=== PATIENT | female | born 1995 | race Caucasian/White ===

== ENCOUNTER 2017-01-09 14:03 | Emergency (ER) | payer BC, OTHER ==
[~2017-01-09] VITALS: Ht 170.2 cm; Wt 62.8 kg
[2017-01-09 14:30] VITALS: Ht 170.2 cm; Wt 62.8 kg
[2017-01-09] MEDS ORDERED: KETOROLAC TROMETHAMINE 30 MG/ML VIAL IV STA (16:00)
[2017-01-09] MEDS ORDERED: ONDANSETRON INJ 2 MG/ML 2 ML VIAL IV STA (16:00)
[2017-01-09] MEDS ORDERED: SODIUM CHLORIDE 0.9% 1000ML 2,000 ML IV STA (16:00)
--- NOTE | 2017-01-09 16:19 | EMERGENCY ROOM VISIT NOTE ---
History First contact with patient: 15:51 Chief Complaint: ILLNESS Stated Complaint: SORETHROAT W/ SWELLING,VOMITING,DIARRHEA History of Present Illness The patient is a 21 year old female who presents to the Emergency Room with complaints of sore throat, fevers and chills, and generalized malaise for the past 5 days. The sore throat has been constant, aching and feels raw, hoarse voice, pain with swallowing, and 7/10. She states she has also had some nausea, vomiting, and diarrhea associated with this, and states she has not been able to keep anything down since yesterday. She also notes that she has only urinated once today. She was seen at urgent care yesterday, states that the rapid strep test was negative and also sent a test for mono but she does not know what the result of that was. She states she has been feeling worse today, and has not been able to urinate for several hours because she feels very dehydrated. She states that every time she tries to drink something, she vomits it back up. She denies any recent contacts, recent travel, she is up to date on immunizations. She denies any headache, neck pain, vision changes, shortness of breath, chest pain, abdominal pain, back pain, blood in the stool, blood in the urine, or rash. Review of Systems A complete 10 point review of systems was reviewed with the patient with pertinent positives and negatives as per history of present illness. All else were negative. Past Medical/Surgical History Medical Problems: (1) No Known Active Medical Problems Social History Smoking Status: Never Smoker Housing Status: lives with family Occupation Status: student Current/Historical Medications Scheduled Amoxicillin (Amoxil), 500 MG PO TID Ondasetron Odt (Zofran Odt), 4 MG SL Q6H Physical Exam Vital Signs Date Time Temp Pulse Resp B/P (MAP) Pulse Ox O2 Delivery O2 Flow Rate FiO2 01/09/17 21:02 37.1 80 18 106/59 98 Room Air 01/09/17 20:04 36.7 84 17 98/46 98 Room Air 01/09/17 18:24 99 18 104/57 97 Room Air 01/09/17 17:50 38.2 99 18 97/47 96 Room Air 01/09/17 16:38 99 Room Air 01/09/17 15:51 39.6 124 18 105/61 100 Room Air 01/09/17 14:30 39.3 133 18 98/59 97 Room Air Physical Exam CONSTITUTIONAL: No acute distress, but appears uncomfortable. Dehydrated. Alert and oriented X 4 with normal affect. HEENT: Normocephalic, atraumatic. Pupils equal, round and reactive to light, EOMI. TMs normal. Pharynx is erythematous, injected, with several exudates noted. There is no trismus or uvular deviation. Dry mucous membranes. NECK: Supple, full active range of motion without discomfort. Bilateral anterior cervical adenopathy, swollen and tender to palpation. RESPIRATORY: Clear to auscultation bilaterally with no wheezing, crackles, rhonchi or stridor. Equal expansion bilaterally. CARDIOVASCULAR: Regular rate and rhythm with no murmurs, rubs or gallops. Normal peripheral perfusion. No edema. GASTROINTESTINAL: Mild epigastric tenderness to palpation. The abdomen is otherwise soft, nontender, nondistended. Bowel sounds present in all quadrants. MUSCULOSKELETAL: Full range of motion of all joints without discomfort. INTEGUMENTARY: No rash or other significant dermatologic conditions noted. NEUROLOGIC: Cranial nerves II-XII grossly intact. No focal neurologic deficits noted. Medical Decision & Procedures ER Provider Diagnostic Interpretation: CHEST 2 VIEWS ROUTINE CLINICAL HISTORY: fever, illness, eval PNA dyspnea COMPARISON STUDY: No previous studies for comparison. FINDINGS: The bones soft tissues and hemidiaphragms are normal. The cardiomediastinal silhouette is normal. The lungs are clear. The pulmonary vasculature is normal. IMPRESSION: Negative chest. Laboratory Results 01/09/17 16:28 Red Blood Count 4.63, Mean Corpuscular Volume 85.1, Mean Corpuscular Hemoglobin 29.4, Mean Corpuscular Hemoglobin Concent 34.5, Mean Platelet Volume 9.9, Neutrophils (%) (Auto) 83.1, Lymphocytes (%) (Auto) 5.1, Monocytes (%) (Auto) 11.1, Eosinophils (%) (Auto) 0.0, Basophils (%) (Auto) 0.2, Neutrophils # (Auto ) 16.23, Lymphocytes # (Auto) 0.99, Monocytes # (Auto) 2.17, Eosinophils # (Auto ) 0.00, Basophils # (Auto) 0.03 01/09/17 16:28 Test 01/09/17 16:19 01/09/17 16:28 01/09/17 16:38 01/09/17 17:20 Bedside Urine Test NEG (NEG) White Blood Count 19.51 K/uL (4.8-10.8) Red Blood Count 4.63 M/uL (4.2-5.4) Hemoglobin 13.6 g/dL (12.0-16.0) Hematocrit 39.4 % (37-47) Mean Corpuscular Volume 85.1 fL (80-100) Mean Corpuscular Hemoglobin 29.4 pg (25-34) Mean Corpuscular Hemoglobin Concent 34.5 g/dl (32-36) Platelet Count 301 K/uL (130-400) Mean Platelet Volume 9.9 fL (7.4-10.4) Neutrophils (%) (Auto) 83.1 % Lymphocytes (%) (Auto) 5.1 % Monocytes (%) (Auto) 11.1 % Eosinophils (%) (Auto) 0.0 % Basophils (%) (Auto) 0.2 % Neutrophils # (Auto) 16.23 K/uL (1.4-6.5) Lymphocytes # (Auto) 0.99 K/uL (1.2-3.4) Monocytes # (Auto) 2.17 K/uL (0.11-0.59) Eosinophils # (Auto) 0.00 K/uL (0-0.5) Basophils # (Auto) 0.03 K/uL (0-0.2) RDW Standard Deviation 41.0 fL (36.4-46.3) RDW Coefficient of Variation 13.1 % (11.5-14.5) Immature Granulocyte % (Auto) 0.5 % Immature Granulocyte # (Auto) 0.09 K/uL (0.00-0.02) Anion Gap 11.0 mmol/L (3-11) Est Creatinine Clear Calc Drug Dose 94.6 ml/min Estimated GFR () 103.3 Estimated GFR (Non- 89.1 BUN/Creatinine Ratio 9.9 (10-20) Calcium Level 9.2 mg/dl (8.5-10.1) Total Bilirubin 0.4 mg/dl (0.2-1) Direct Bilirubin 0.2 mg/dl (0-0.2) Aspartate Amino Transf (AST/SGOT) 13 U/L (15-37) Alanine Aminotransferase (ALT/SGPT) 12 U/L (12-78) Alkaline Phosphatase 111 U/L (45-117) Total Protein 8.7 gm/dl (6.4-8.2) Albumin 3.6 gm/dl (3.4-5.0) Lipase 65 U/L (73-393) Monoscreen NEG (NEG) Bedside Lactic Acid Venous 0.73 mmol/L (0.90-1.70) Urine Color DK YELLOW Urine Appearance CLEAR (CLEAR) Urine pH 6.0 (4.5-7.5) Urine Specific [place] 1.029 (1.000-1.030) Urine Protein 1+ (NEG) Urine Glucose (UA) NEG (NEG) Urine Ketones 4+ (NEG) Urine Occult Blood NEG (NEG) Urine Nitrite NEG (NEG) Urine Bilirubin 1+ (NEG) Urine Urobilinogen NEG (NEG) Urine Leukocyte Esterase TRACE (NEG) Urine WBC (Auto) 1-5 /hpf (0-5) Urine RBC (Auto) 5-10 /hpf (0-4) Urine Hyaline Casts (Auto) 10-30 /lpf (0-5) Urine Epithelial Cells (Auto) >30 /lpf (0-5) Urine Bacteria (Auto) NEG (NEG) Urine Renal Epithelial Cells /lpf (0-5) Medications Administered Medications (Trade) Dose Ordered Sig/Fannie Route Start Time Stop Time Status Last Admin Dose Admin Sodium Chloride 2,000 ml @ 999 mls/hr Q2H1M STAT IV 01/09/17 16:00 01/09/17 18:00 DC 01/09/17 16:00 999 MLS/HR Ketorolac Tromethamine (Toradol Inj) 15 mg NOW STAT IV 01/09/17 16:00 01/09/17 16:03 DC 01/09/17 16:43 15 MG Ondansetron HCl (Zofran Inj) 4 mg NOW STAT IV 01/09/17 16:00 01/09/17 16:04 DC 01/09/17 16:43 4 MG Ampicillin Sodium/ Sulbactam Sodium 3000 mg/Sodium Chloride 108 ml @ 200 mls/hr NOW STAT IV 01/09/17 18:49 01/09/17 19:21 DC 9/10/17 19:01 200 MLS/HR Sodium Chloride 1,000 ml @ 999 mls/hr Q1H1M STAT IV 01/09/17 19:50 01/09/17 20:50 DC 01/09/17 19:50 999 MLS/HR Acetaminophen (Tylenol Tab) 1,000 mg NOW STAT PO 01/09/17 19:50 01/09/17 19:51 DC 01/09/17 20:04 1,000 MG Ondansetron HCl (ZOFRAN ODT 4MG Home Pack) 1 homepack UD ONCE PO 01/09/17 21:45 01/09/17 21:46 DC 01/09/17 22:00 1 HOMEPACK Medical Decision CC: Patient presenting with complaint of sore throat, fevers, malaise Interpretation of Labs: Significant leukocytosis with left shift, no anemia, no significant electrolyte abnormalities, normal renal function, normal liver enzymes and lipase, normal lactic acid. UA shows 4+ ketones, no UTI. Urine negative Differential Diagnosis: Includes, but not limited to viral pharyngitis, streptococcal pharyngitis, mononucleosis, peritonsillar abscess, viral upper respiratory infection, bronchitis, pneumonia, UTI, dehydration, electrolyte abnormality, bacteremia, among others. Medication Reconciliation: I attest that I have personally reviewed the patient' s current medication list. Vital signs review: I reviewed the patient's vital signs and interpret them as follows: T: Afebrile; BP: Normotensive; HR: Tachycardic; RR: Within normal limits; Pulse Ox: Within normal limits on room air. Summary: Patient was evaluated at bedside, history of physical exam performed. Patient is alert and in no acute distress, but does appear very uncomfortable. She is noted to be quite febrile and tachycardic on initial exam. Patient appears very dehydrated on exam with dry mucous membranes, sunken eyes, dry skin. On exam, patient appears to have an exudative pharyngitis, with bilateral anterior cervical adenopathy. No trismus, unilateral swelling, uvular deviation, or muffled voice to suspect peritonsillar abscess at this time. Orders were placed at bedside for labs, UA and culture, urine , blood cultures, rapid strep and mono test, chest x-ray. Patient discussed with Dr. Low, who agrees with my assessment and plan. Labs reviewed as above, notable for significant leukocytosis with left shift concerning for possible bacterial infection. Rapid strep is negative, mono is negative. Patient appears severely dehydrated with 4+ ketones in her urine. Given patient's persistent high fevers for 5 days, significant leukocytosis, and concerning symptoms for bacterial pharyngitis, although mononucleosis cannot be fully ruled out. I discussed with the patient, she prefers to be placed on antibiotics. I did discuss risks and benefits of antibiotics as well as concern for possible antibiotic resistance, she verbalizes understanding and continued to request antibiotics. IV Unasyn dose given in the ED, Rx for amoxicillin provided to the patient. Rx for Zofran also provided. Patient received 3 L of normal saline for IV hydration, IV Toradol and PO Tylenol for fevers, with overall good improvement. Repeat vitals show resolution of tachycardia and she is now afebrile. Patient reassessed multiple times throughout ED stay, patient states she is feeling much better after interventions. She has been able to tolerate PO fluids without vomiting or increased nausea. I discussed all results with the patient and plan for discharge home. I instructed her to follow closely with her PCP/[facility], and gave her strict return precautions should her symptoms worsen. Patient verbalized understanding of all instructions and plan. Patient was discharged home in stable condition and ambulatory. Medication Reconcilliation Current Medication List: was personally reviewed by me Blood Pressure Screening Patient's blood pressure: Normal blood pressure Impression Primary Impression: Dehydration, severe Additional Impression: Pharyngitis Departure Information Dispostion Home / Self-Care Condition GOOD Prescriptions Ondasetron Odt (ZOFRAN ODT) 4 Mg Tab 4 MG SL Q6H for Nausea, #6 TAB Prov: Mariya Hansen CRNP 01/09/17 Amoxicillin (AMOXIL) 500 Mg Cap 500 MG PO TID for 10 Days, #30 CAP Prov: Mariya Hansen CRNP 01/09/17 Referrals No Doctor, Assigned (PCP) Patient Instructions ED Strep Pharyngitis Lizeth Carcamo [facility] Additional Instructions Your rapid strep screen was read as negative, however strep infection is suspected based on your exam today. Culture results should come back in the next 2 days. Take prescription medications as prescribed. Amoxicillin 500 mg 3 times a day x10 days. All antibiotics have the potential to cause diarrhea. A few develop a rash while on this medication stop the medication and see your family physician for evaluation. Zofran ODT 1 tablet every 6-8 hours as needed for severe nausea/vomiting. Ibuprofen(Motrin, Advil) may be used for fever or pain. Use 600mg every 6-8 hours as needed. Take with food. Avoid using more than 2400mg in a 24 hour period. Do not use 2400mg per day for more than three consecutive days without physician direction. Prolonged inappropriate use can lead to stomach upset or ulcers. (AND/OR) Acetaminophen(Tylenol) may be used for fever or pain. Use 1000mg every 8 hours as needed. Avoid using more than 3000 mg in a 24 hour period. You may alternate between Tylenol and ibuprofen every 4 hours to help manage your throat pain. Use warm salt water gargles. And drink warm tea to help soothe your throat. Please follow-up with your primary care provider in the next few days for reassessment. Return to emergency department if symptoms of difficulty breathing, increased pain or difficulty swallowing, persistent high fevers, or if your symptoms do not improve. Work Instructions Return To Work: 2 days Problem Qualifiers Additional Impression: Pharyngitis Pharyngitis/tonsillitis etiology: unspecified etiology Qualified Codes: J02.9 - Acute pharyngitis, unspecified
[2017-01-09 16:53] LABS: BASO % 0.2 %; BASO ABS # 0.03 K/uL (0-0.2); COMPLETE YES; HEMATOCRIT 39.4 % (37-47); IG% 0.5 %; LYMPH % 5.1 %; LYMPH ABS # 0.99 K/uL (1.2-3.4); MEAN CELL VOLUME 85.1 fL (80-100); MEAN CORPUSCULAR HEMOGLOBIN 29.4 pg (25-34); MEAN CORPUSCULAR HGB CONC 34.5 g/dl (32-36); MEAN PLATELET VOLUME 9.9 fL (7.4-10.4); MONO % 11.1 %; NEUT % 83.1 %; PLATELET COUNT 301 K/uL (130-400); RED BLOOD COUNT 4.63 M/uL (4.2-5.4); WHITE BLOOD COUNT 19.51 K/uL (4.8-10.8)
[2017-01-09 17:12] LABS: BUN/CREATININE RATIO 9.9 (10-20); CALCIUM 9.2 mg/dl (8.5-10.1); CREATININE 0.93 mg/dl (0.60-1.20); POTASSIUM 3.3 mmol/L (3.5-5.1)
[2017-01-09 17:36] LABS: URINE APPEARANCE CLEAR (CLEAR); URINE COLOR DK YELLOW; URINE EPITHELIAL CELL AUTO >30 /lpf (0-5); URINE NITRITE NEG (NEG); URINE SPECIFIC GRAVITY 1.029 (1.000-1.030); UROBILINOGEN NEG (NEG); ZZUR CULT IF INDIC CLEAN CATCH NO
[2017-01-09 17:44] LABS: MANUAL MICROSCOPIC REQUIRED? NO; REVIEW REQ? YES; URINE BILIRUBIN 1+ (NEG)
--- NOTE | 2017-01-09 18:16 | DIAGNOSTIC IMAGING REPORT ---
CHEST 2 VIEWS ROUTINE CLINICAL HISTORY: fever, illness, eval PNA dyspnea COMPARISON STUDY: No previous studies for comparison. FINDINGS: The bones soft tissues and hemidiaphragms are normal. The cardiomediastinal silhouette is normal. The lungs are clear. The pulmonary vasculature is normal. IMPRESSION: Negative chest. The above report was generated using voice recognition software. It may contain grammatical, syntax or spelling errors. Electronically signed by: Eddie Narvaez M.D. 01/09/2017 6:15 PM Dictated Date/Time: 01/09/2017 6:15 PM
[2017-01-09] MEDS ORDERED: AMPICILLIN/SULBACTAM SOD INJ 3,000 MG in SODIUM CHLORIDE 0.9% 100ML 100 ML IV STA (18:49)
[2017-01-09] MEDS ORDERED: SODIUM CHLORIDE 0.9% 1000ML 1,000 ML IV STA (19:50)
[2017-01-09] MEDS ORDERED: ACETAMINOPHEN 500 MG TAB PO STA (19:50)
[2017-01-09 21:02] VITALS: BP 106/59; PULSE 80; TEMP 37.1; O2SAT 98
[2017-01-09] MEDS ORDERED: AMOX500C3 PO (21:29)
[2017-01-09] MEDS ORDERED: ONDA4TAB10 SL (21:29)
[2017-01-09] MEDS ORDERED: ONDANSETRON HOME PACK 4MG OD TAB PO ONE (21:45)
== END 2017-01-09 22:00 | disposition home or self-care (01) ==
LOC: C.EDB 14:05
DX: E86.0 Dehydration (principal); J02.9 Acute pharyngitis, unspecified

== ENCOUNTER → 2017-01-18 | Outpatient (CLI) | payer BC, OTHER ==
[~2017-01-18] MED LIST: AMOX500C3 PO; ONDA4TAB10 SL
--- NOTE | 2017-01-18 17:24 | DIAGNOSTIC IMAGING REPORT ---
CHEST 2 VIEWS ROUTINE CLINICAL HISTORY: CXR preoperative evaluation COMPARISON STUDY: 01/09/2017 FINDINGS: The bones soft tissues and hemidiaphragms are normal. The cardiomediastinal silhouette is normal. The lungs are clear. The pulmonary vasculature is normal. IMPRESSION: Negative chest. The above report was generated using voice recognition software. It may contain grammatical, syntax or spelling errors. Electronically signed by: Eddie Narvaez M.D. 01/18/2017 5:22 PM Dictated Date/Time: 01/18/2017 5:22 PM
[2017-01-18 17:47] LABS: BASO % 0.3 %; BASO ABS # 0.04 K/uL (0-0.2); COMPLETE YES; EOS % 2.8 %; HEMATOCRIT 39.5 % (37-47); IG% 1.5 %; LYMPH % 22.9 %; LYMPH ABS # 2.81 K/uL (1.2-3.4); MEAN CELL VOLUME 86.4 fL (80-100); MEAN CORPUSCULAR HEMOGLOBIN 29.3 pg (25-34); MEAN CORPUSCULAR HGB CONC 33.9 g/dl (32-36); MEAN PLATELET VOLUME 8.9 fL (7.4-10.4); NEUT % 61.5 %; PLATELET COUNT 511 K/uL (130-400); RED BLOOD COUNT 4.57 M/uL (4.2-5.4); WHITE BLOOD COUNT 12.27 K/uL (4.8-10.8)
[2017-01-18 18:02] LABS: POTASSIUM 4.3 mmol/L (3.5-5.1)
[2017-01-18 18:08] LABS: PROTHROMBIN TIME (PATIENT) 10.5 SECONDS (9.0-12.0)
[2017-01-18 18:18] LABS: PREG INTERNAL NEGATIVE QC NEG CLEAR BACKGROUND; PREG INTERNAL POSITIVE QC POS CONTROL LINE
== END | disposition home or self-care (01) ==
LOC: C.RAD 16:33
DX: Z01.818 Encounter for other preprocedural examination (principal)

== ENCOUNTER → 2017-01-28 | Day surgery (SDC) | payer BC, OTHER ==
[2017-01-18 14:08] VITALS: Ht 170.2 cm; Wt 65.9 kg
[~2017-01-28] VITALS: Ht 170.2 cm; Wt 65.9 kg
[~2017-01-28] MED LIST changes: -AMOX500C3 PO; +ATROPINE SULFATE 0.1 MG/ML 5ML SYR IV PRN; +BACITRACIN/POLYMYXIN B OINT 15 GM TUBE EXT ONE; +DEXAMETHASONE SOD INJ 4 MG/ML VIAL ONE; +EpHEDrine SULFATE INJ 50 MG/ML AMP IV PRN; +FENTANYL CITRATE INJ 50 MCG/1 ML 2 ML VIAL IV PRN; +FENTANYL CITRATE INJ 50 MCG/1 ML 2 ML VIAL ONE; +FLUMAZENIL 0.1 MG/1 ML 10 ML VIAL IV PRN; +LACTATED RINGER'S 1000ML 1,000 ML IV SCH; +LIDOCAINE 2% JELLY 5 ML TUBE EXT ONE; +LIDOCAINE HCL 2% 2 ML VIAL (20MG/ML) ONE; +MIDAZOLAM HCL 1 MG/ML 2ML VIAL ONE; +NALOXONE HCL 0.4 MG/1 ML VIAL/CARP IV PRN; -ONDA4TAB10 SL; +ONDANSETRON INJ 2 MG/ML 2 ML VIAL IV PRN; +ONDANSETRON INJ 2 MG/ML 2 ML VIAL ONE; +OXYCODONE HCL SOLN 5 MG/5 ML UDC PO PRN; +OXYMETAZOLINE HCL 0.05% NA SPR 15 ML BTL ONE; +PROMETHAZINE HCL INJ 12.5 MG in SODIUM CHLORIDE 0.9% 50ML 50 ML IV PRN; +PROPOFOL IV EMULSION 10 MG/ML 20 ML VIAL IV ONE
--- NOTE | 2017-01-28 08:01 | History & Physical Bridge - [place] ---
H&P Re-Evaluation Bridge Note: I have examined the patient, reviewed the History & Physical and in the interval since the performance of the History & Physical I have noted the following changes of clinical significance: No changes noted
--- NOTE | 2017-01-28 08:47 | [facility] Operative Report ---
Operative Report Operative Date Jan 28, 2017. Pre-Operative Diagnosis Recurrent Acute Tonsillitis, Chronic Tonsillitis Post-Operative Diagnosis same Procedure(s) Performed Tonsillectomy Surgeon Dr. Ana Yao Fisher Trap Surgeon(s) 0 Estimated Blood Loss 0 Findings 2-3+ CRYPTIC TONSILS Specimens A. Right Tonsil B. Left Tonsil I attest to the content of the Intraoperative Record and any orders documented therein. Any exceptions are noted below.
--- NOTE | 2017-01-28 08:49 | Discharge Instructions ---
Discharge Instructions Date of Service Jan 28, 2017. Admission Reason for Admission: Rec Acute Tonsillitis, Chronic Tonsillitis Discharge Discharge Diagnosis / Problem: SAME Discharge Goals Goal(s): Therapeutic intervention Activity Recommendations Activity Limitations: as noted below LIGHT ACTIVITY FOR 2 WEEKS AND NO DRIVING WHILE ON OXYCODONE . Current Hospital Diet Patient's current hospital diet: Full Liquid Diet Discharge Diet Recommended Diet: Full Liquid Diet Diet Texture: Mechanical Soft (ground) Procedures Procedures Performed: Tonsillectomy Pending Studies Studies pending at discharge: no Medical Emergencies . Who to Call and When: Medical Emergencies: If at any time you feel your situation is an emergency, please call 911 immediately. . Non-Emergent Contact Non-Emergency issues call your: Surgeon . . "Provider Documentation" section prepared by Minesh Yao. . VTE Core Measure Inpt VTE Proph given/why not?: SCD's
[2017-01-28 09:39] VITALS: TEMP 37
--- NOTE | 2017-01-28 09:40 | OPERATIVE REPORT ---
DATE OF OPERATION: 01/28/2017 PREOPERATIVE DIAGNOSIS: Recurrent acute and chronic tonsillitis. POSTOPERATIVE DIAGNOSIS: Recurrent acute and chronic tonsillitis. PROCEDURE: Bilateral tonsillectomy. SURGEON: Dr. Yao. ANESTHESIA: General endotracheal. ESTIMATED BLOOD LOSS: Zero. FINDINGS: 1. No evidence of adenoid tissue. 2. 2-3+ cryptic tonsils bilaterally. SPECIMENS: Right and left tonsil sent separately for permanent pathological assessment. COMPLICATIONS: None. INDICATIONS FOR THE PROCEDURE: The patient is a 21-year-old female with the above-mentioned history who presents for the above-mentioned procedure on an outpatient elective basis. DESCRIPTION OF PROCEDURE: After informed consent had been obtained from the patient, the patient was wheeled to the operating room and placed on the operating table in the supine position. Monitors were placed. After induction of general endotracheal anesthesia, the table was turned 90 degrees and the patient's head and neck were gently extended. Antibiotic ointment was applied to lips and a mouth gag was carefully inserted, opened, stabilized on a roll of towels. The palate was inspected and this was found to be normal. A catheter was inserted into the right nasal cavity and this was used to elevate the soft palate and uvula. A laryngeal mirror was used to inspect the nasopharynx and the intraoperative findings were no evidence of adenoid hypertrophy. An Allis clamp was then used to grasp the right tonsil and the superior pole. Bovie electrocautery was used to remove the tonsil in the capsular plane with care to preserve the underlying mucosa and musculature of the anterior and posterior tonsillar pillars. The left tonsil was then removed in a similar fashion. Intraoperative findings were 2-3+ cryptic tonsils bilaterally. These were sent separately for permanent pathological assessment. The mouth gag was released for 1 minute. This was reopened and hemostasis was confirmed. An orogastric tube was placed and the stomach was suctioned free of air and stomach contents. 2% lidocaine jelly was placed in the bilateral tonsillar fossae for added anesthetic effect. This marked the end of the case. The patient tolerated the procedure well and there were no apparent complications. All the instrumentation was removed from the patient. The patient was extubated and transferred to recovery room in stable condition. I attest to the content of the Intraoperative Record and any orders documented therein. Any exception s are noted below.
--- NOTE | 2017-01-28 09:40 | Anesthesia Progress Nt - [facility] ---
Anesthesia Post Op Note Date & Time Jan 28, 2017 at 09:40 Vital Signs Pain Intensity: 1 Vital Signs Past 12 Hours Date Time Temp Pulse Resp B/P (MAP) Pulse Ox O2 Delivery O2 Flow Rate FiO2 01/28/17 09:32 36.8 69 16 122/82 100 Room Air 01/28/17 09:28 74 20 01/28/17 09:28 76 20 100 01/28/17 09:26 101/84 01/28/17 09:23 62 18 01/28/17 09:23 63 18 100 01/28/17 09:21 117/70 01/28/17 09:18 64 16 100 01/28/17 09:18 64 16 01/28/17 09:16 120/72 01/28/17 09:13 68 17 100 01/28/17 09:13 69 17 01/28/17 09:12 67 16 01/28/17 09:12 68 16 100 01/28/17 09:11 130/80 01/28/17 09:07 71 14 01/28/17 09:07 75 14 100 01/28/17 09:06 127/78 01/28/17 09:02 100 22 01/28/17 09:02 98 22 126/82 100 01/28/17 08:58 138/87 01/28/17 08:57 36.5 99 18 138/87 100 Humidified Oxygen 6 Mask 01/28/17 07:05 37.1 81 22 114/73 (87) 98 Room Air Notes Mental Status: alert / awake / arousable, participated in evaluation Pt Amnestic to Procedure: Yes Nausea / Vomiting: adequately controlled Pain: adequately controlled Airway Patency, RR, SpO2: stable & adequate BP & HR: stable & adequate Hydration State: stable & adequate Anesthetic Complications: no major complications apparent
[2017-01-28 10:09] VITALS: BP 119/78; PULSE 60; O2SAT 98
== END | disposition home or self-care (01) ==
LOC: X.SURG 06:41
DX: J03.91 Acute recurrent tonsillitis, unspecified (principal); J35.01 Chronic tonsillitis; Z98.890 Other specified postprocedural states; Z82.3 Family history of stroke; Z68.22 Body mass index [BMI] 22.0-22.9, adult

== ENCOUNTER 2017-08-01 19:55 | Emergency (ER) | payer BC, OTHER ==
[~2017-08-01] VITALS: Ht 170.2 cm; Wt 71.2 kg
[2017-08-01 20:02] VITALS: TEMP 36.9; Ht 170.2 cm; Wt 71.2 kg
[2017-08-01] MEDS ORDERED: SODIUM CHLORIDE 0.9% 1000ML 1,000 ML IV STA (21:34)
[2017-08-01 22:07] LABS: BASO % 0.3 %; BASO ABS # 0.03 K/uL (0-0.2); EOS % 3.3 %; EOS ABS # 0.28 K/uL (0-0.5); HEMOGLOBIN 14.4 g/dL (12.0-16.0); IG# 0.02 K/uL (0.00-0.02); LYMPH % 32.2 %; LYMPH ABS # 2.76 K/uL (1.2-3.4); MEAN CELL VOLUME 87.9 fL (80-100); MEAN CORPUSCULAR HEMOGLOBIN 30.1 pg (25-34); MEAN CORPUSCULAR HGB CONC 34.3 g/dl (32-36); MEAN PLATELET VOLUME 10.1 fL (7.4-10.4); MONO % 8.7 %; MONO ABS # 0.75 K/uL (0.11-0.59); NEUT % 55.3 %; NEUT ABS # 4.74 K/uL (1.4-6.5); PLATELET COUNT 310 K/uL (130-400); RED CELL DISTRIBUTION WIDTH CV 12.9 % (11.5-14.5); RED CELL DISTRIBUTION WIDTH SD 41.8 fL (36.4-46.3); WHITE BLOOD COUNT 8.58 K/uL (4.8-10.8)
[2017-08-01] MEDS ORDERED: PHEN-601 PO (22:18)
[2017-08-01 22:19] LABS: PTT PATIENT 21.6 SECONDS (21.0-31.0)
[2017-08-01 22:31] LABS: CALCIUM 8.8 mg/dl (8.5-10.1); CREATININE 1.08 mg/dl (0.60-1.20); POTASSIUM 3.7 mmol/L (3.5-5.1)
[2017-08-01 23:57] VITALS: BP 114/71; PULSE 65; O2SAT 98
--- NOTE | 2017-08-02 00:40 | EMERGENCY ROOM VISIT NOTE ---
History Report prepared by Annie: Marvel Deleon Under the Supervision of: Dr. Feliz Doss M.D. First contact with patient: 21:25 Chief Complaint: DIZZY Stated Complaint: TUNNEL VISION,RINGING EARS,DIZZY,FALLING Nursing Triage Summary: Patient c/o intermittent dizziness that began a months ago. Associates a headache and heavy menstrual period. History of Present Illness The patient is a 21 year old female who presents to the Emergency Room with complaints of worsening "dizzy spells" and feelings of near syncope that she has been experiencing for the past 3-4 weeks. She denies any true loss of consciousness or headaches. The patient states that she has been experiencing episodes where she gets suddenly "dizzy" and feels like she is going to pass out. She notes that these episodes have been worsening in severity and frequency as of lately. Today the episodes were much more severe. She also experienced some nausea and vomiting today before the dizziness onset, which was unusual as compared to the past several weeks. She states the dizziness spontaneously resolves. The patient is currently on her menstrual cycle and is concerned about the heaviness of her bleeding currently. She is going through 8 pads per day, and has been going through this many for the past 3 days. She denies any melena or abdominal pain. 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 A total of ten systems were reviewed and were otherwise negative. Past Medical & Surgical Medical Problems: (1) No Known Active Medical Problems Family History Diabetes mellitus FHx: cancer FHx: heart disease Hypertension Kidney disease Kidney stones Social History Smoking Status: Never Smoker Housing Status: lives with family Occupation Status: student Current/Historical Medications Scheduled PRN Phenylephrine W/ Acetaminophen (Tylenol Sinus Congestion), 1 TAB PO UD PRN for Sinus Congestion Allergies Coded Allergies: No Known Allergies (Unverified , 01/28/17) Physical Exam Vital Signs Date Time Temp Pulse Resp B/P (MAP) Pulse Ox O2 Delivery O2 Flow Rate FiO2 08/01/17 23:57 65 18 114/71 98 08/01/17 23:40 69 18 112/62 98 Room Air 08/01/17 20:02 36.9 86 18 146/67 99 Room Air Physical Exam Physical Exam GENERAL: She is oriented to person, place, and time. She appears well- developed and well-nourished. She does not appear distressed. ____ HENT: Exam performed. Head: Normocephalic and atraumatic. Right Ear: External ear normal. No mastoid tenderness. Left Ear: External ear normal. No mastoid tenderness. Mouth/Throat: The oropharynx is clear and moist. No trismus in the jaw. No dental abscesses or uvula swelling. No oropharyngeal exudate or tonsillar abscesses. ____ EYES: Conjunctivae and EOM are normal. Pupils are equal, round, and reactive to light. Right eye exhibits no discharge. Left eye exhibits no discharge. No scleral icterus. ____ NECK: Normal range of motion. Neck supple. No JVD present. No spinous process tenderness present. No carotid bruit present. No rigidity. No tracheal deviation and normal range of motion present. No Brudzinski's sign and no Kernig 's sign noted. ____ CV: Normal rate, regular rhythm, normal heart sounds and intact distal pulses. There is no peripheral edema. Palpable radial pulses bue. ____ PULM/CHEST: Effort normal and breath sounds normal. No respiratory distress. No stridor. She has no wheezes. She has no rales. Chest Wall: She exhibits no tenderness. ____ ABD: The abdomen is soft. Bowel sounds are normal. She has no distension. No mass is present. There is no tenderness. There is no rebound, no guarding, no Gilmore's sign and no tenderness at McBurney's point. Rovsig negative MUSC/SKEL: Normal range of motion. There is no peripheral edema, tenderness or deformity. LYMPH: No cervical adenopathy. ____ NEURO: She is alert and oriented to person, place, and time. She has normal strength. No cranial nerve deficit or sensory deficit. Coordination and gait normal. GCS eye subscore is 4. GCS verbal subscore is 5. GCS motor subscore is 6. Cerebellar tests wnl. ____ SKIN: Skin is warm and dry. She is not diaphoretic. ____ PSYCH: She has a normal mood and affect. Her behavior is normal. Judgment and thought content normal. ____ Medical Decision & Procedures Laboratory Results 08/01/17 21:50 Red Blood Count 4.78, Mean Corpuscular Volume 87.9, Mean Corpuscular Hemoglobin 30.1, Mean Corpuscular Hemoglobin Concent 34.3, Mean Platelet Volume 10.1, Neutrophils (%) (Auto) 55.3, Lymphocytes (%) (Auto) 32.2, Monocytes (%) (Auto) 8.7, Eosinophils (%) (Auto) 3.3, Basophils (%) (Auto) 0.3, Neutrophils # (Auto) 4.74, Lymphocytes # (Auto) 2.76, Monocytes # (Auto) 0.75, Eosinophils # (Auto) 0.28, Basophils # (Auto) 0.03 08/01/17 21:50 Test 08/01/17 21:45 08/01/17 21:50 Urine Color YELLOW Urine Appearance CLOUDY (CLEAR) Urine pH 5.0 (4.5-7.5) Urine Specific [place] 1.027 (1.000-1.030) Urine Protein TRACE (NEG) Urine Glucose (UA) NEG (NEG) Urine Ketones TRACE (NEG) Urine Occult Blood 3+ (NEG) Urine Nitrite NEG (NEG) Urine Bilirubin NEG (NEG) Urine Urobilinogen NEG (NEG) Urine Leukocyte Esterase TRACE (NEG) Urine WBC (Auto) 10-30 /hpf (0-5) Urine RBC (Auto) >30 /hpf (0-4) Urine Hyaline Casts (Auto) 1-5 /lpf (0-5) Urine Epithelial Cells (Auto) 10-20 /lpf (0-5) Urine Bacteria (Auto) NEG (NEG) Urine Test NEG (NEG) White Blood Count 8.58 K/uL (4.8-10.8) Red Blood Count 4.78 M/uL (4.2-5.4) Hemoglobin 14.4 g/dL (12.0-16.0) Hematocrit 42.0 % (37-47) Mean Corpuscular Volume 87.9 fL (80-100) Mean Corpuscular Hemoglobin 30.1 pg (25-34) Mean Corpuscular Hemoglobin Concent 34.3 g/dl (32-36) Platelet Count 310 K/uL (130-400) Mean Platelet Volume 10.1 fL (7.4-10.4) Neutrophils (%) (Auto) 55.3 % Lymphocytes (%) (Auto) 32.2 % Monocytes (%) (Auto) 8.7 % Eosinophils (%) (Auto) 3.3 % Basophils (%) (Auto) 0.3 % Neutrophils # (Auto) 4.74 K/uL (1.4-6.5) Lymphocytes # (Auto) 2.76 K/uL (1.2-3.4) Monocytes # (Auto) 0.75 K/uL (0.11-0.59) Eosinophils # (Auto) 0.28 K/uL (0-0.5) Basophils # (Auto) 0.03 K/uL (0-0.2) RDW Standard Deviation 41.8 fL (36.4-46.3) RDW Coefficient of Variation 12.9 % (11.5-14.5) Immature Granulocyte % (Auto) 0.2 % Immature Granulocyte # (Auto) 0.02 K/uL (0.00-0.02) Prothrombin Time 10.2 SECONDS (9.0-12.0) Prothromb Time International Ratio 1.0 (0.9-1.1) Activated Partial Thromboplast Time 21.6 SECONDS (21.0-31.0) Partial Thromboplastin Ratio 0.8 Anion Gap 7.0 mmol/L (3-11) Est Creatinine Clear Calc Drug Dose 81.5 ml/min Estimated GFR () 86.2 Estimated GFR (Non- 74.4 BUN/Creatinine Ratio 15.8 (10-20) Calcium Level 8.8 mg/dl (8.5-10.1) Laboratory results reviewed by me Medications Administered Medications (Trade) Dose Ordered Sig/Fannie Route Start Time Stop Time Status Last Admin Dose Admin Sodium Chloride 1,000 ml @ 999 mls/hr Q1H1M STAT IV 08/01/17 21:34 08/01/17 22:34 DC 08/01/17 21:59 999 MLS/HR ECG Per My Interpretation Rate (beats per minute): 57 Rhythm: sinus with SA Findings: other (QTC, [place], QRS within normal limits, no BELINDA/STD) ED Course 2128: The patient was evaluated in room C11B. A complete history and physical exam was performed. 2134: Ordered Sodium Chloride 1000 mL @ 999 mL/hr IV. 2338: I updated the patient at this time. Her vital signs are stable. Her laboratory studies and EKG are within normal limits. The patient adamantly refused a pelvic exam and will follow up with her PCP. Case Management has attempted to set up an appointment with neurology as these symptoms have been going on for a few months. Her insurance requires her to have a referral from her PCP to see a neurologist. DISCHARGE - Plan of care discussed with patient and questions answered. The patient was given both verbal and printed discharge instructions. The patient verbalized understanding and ability to comply. The patient is to seek outpatient follow up as noted in the discharge instructions. The patient verbalized understanding and ability to comply. The patient is discharged in stable condition. The patient was instructed to return for worsening symptoms. Medical Decision vital signs are stable. Her laboratory studies and EKG are within normal limits. The patient adamantly refused a pelvic exam and will follow up with her PCP. Case Management has attempted to set up an appointment with neurology as these symptoms have been going on for a few months. Her insurance requires her to have a referral from her PCP to see a neurologist. DISCHARGE - Plan of care discussed with patient and questions answered. The patient was given both verbal and printed discharge instructions. The patient verbalized understanding and ability to comply. The patient is to seek outpatient follow up as noted in the discharge instructions. The patient verbalized understanding and ability to comply. The patient is discharged in stable condition. The patient was instructed to return for worsening symptoms. Medication Reconcilliation Current Medication List: was personally reviewed by me Blood Pressure Screening Patient's blood pressure: Normal blood pressure Impression Primary Impression: Near syncope Additional Impression: Vaginal bleeding Scribe Attestation The scribe's documentation has been prepared under my direction and personally reviewed by me in its entirety. I confirm that the note above accurately reflects all work, treatment, procedures, and medical decision making performed by me. The chart was completed utilizing [employer] voice recognition software. Grammatical errors, random word insertions, pronoun errors, and incomplete sentences are an occasional consequence of this system due to software limitations, ambient noise, and hardware issues. Any formal questions or concerns about the content, text, or information contained within the body of this dictation should be directly addressed to the physician for clarification. Departure Information Dispostion Home / Self-Care Referrals Devonte Hatch M.D. (PCP) Patient Instructions My [facility] Health Problem Qualifiers
== END 2017-08-01 23:57 | disposition home or self-care (01) ==
LOC: C.EDB 19:56 → C.EDC 23:57
DX: R55 Syncope and collapse (principal); N93.9 Abnormal uterine and vaginal bleeding, unspecified